=== PATIENT | female | born 1985 | race African-American/Black ===

== ENCOUNTER 2017-11-12 09:14 | Inpatient (IN) | payer MEDICAID ==
[2017-11-12] MEDS ORDERED: BUTORPHANOL 2 MG INJ IV (10:00)
[2017-11-12] MEDS ORDERED: METHYLERGONOVINE 0.2 MG INJ IM (10:00)
[2017-11-12] MEDS ORDERED: OXYTOCIN 30 UNITS/LR 500 ML IV ×3 (10:00)
[2017-11-12] MEDS ORDERED: LIDOCAINE 1% (MPF) 30 ML INJ INJ (10:00)
[2017-11-12] MEDS ORDERED: CARBOPROST 250 MCG INJ IM (10:00)
[2017-11-12] MEDS ORDERED: IBUPROFEN 600 MG TAB PO (10:00)
[2017-11-12] MEDS ORDERED: OXYCODONE/ASPIRIN (4.88/325) TAB PO (10:00)
[2017-11-12] MEDS ORDERED: MISOPROSTOL 200 MCG TAB PR (10:00)
[2017-11-12] MEDS: LACTATED RINGER'S 1,000 ML IV* ×3 (10:09→21:37)
[2017-11-12 10:49] LABS: ADD MAN DIFF? NO
[2017-11-12 10:51] LABS: BASOPHILS % 0.4 % (0.0-2.0); EOSINOPHILS # 0.1 10^3/ul (0.0-0.5); EOSINOPHILS % 1.1 % (0.0-7.0); HEMATOCRIT 33.4 % (37.0-47.0); HEMOGLOBIN 10.5 g/dl (12.0-16.0); LYMPHOCYTES % 25.5 % (15.0-51.0); MEAN CORPUSCULAR HEMOGLOBIN 25.4 pg (29.0-33.0); MEAN CORPUSCULAR HGB CONC 31.4 g/dl (32.0-37.0); MEAN CORPUSCULAR VOLUME 80.9 fl (82.0-101.0); MEAN PLATELET VOLUME 11.2 fl (7.4-10.4); MONOCYTE # 0.5 10^3/ul (0.3-0.9); MONOCYTES % 5.8 % (0.0-11.0); NEUTROPHIL # 5.3 10^3/ul (1.6-7.5); NEUTROPHILS % 66.9 % (39.0-77.0); PLATELET COUNT 220 10^3/UL (140-415); RED BLOOD COUNT 4.13 10^6/ul (4.20-5.40); RED CELL DISTRIBUTION WIDTH 15.1 % (11.5-14.5)
[2017-11-12 11:11] LABS: INR 0.85; PROTIME 11.7 Sec (11.9-14.9); PT RATIO 0.9
[2017-11-12] MEDS: MISOPROSTOL 50 MCG CAPSULE PO (15:21)
[2017-11-12 15:55] LABS: RAPID PLASMA REAGIN NONREACTIVE (NR)
[2017-11-12] MEDS ORDERED: TERBUTALINE 1 ML (16:03)
[2017-11-12] MEDS: TERBUTALINE 1 MG/ML INJ SC (16:22)
[2017-11-13] MEDS: LACTATED RINGER'S 1,000 ML IV* ×2 (05:10→20:04)
[2017-11-13] MEDS ORDERED: FENTAnyl 2MCG/ML-ROPIV 0.2% 100 ML (15:45)
[2017-11-13] MEDS ORDERED: NALOXONE (0.4 MG/ML) INJ IV (16:00)
[2017-11-13] MEDS ORDERED: DIPHENHYDRAMINE 50 MG INJ IV (16:00)
[2017-11-13] MEDS: FENTAnyl 2MCG/ML-ROPIV 0.2% 100 ML BAG EPI (20:05)
[2017-11-14] MEDS: FENTAnyl 2MCG/ML-ROPIV 0.2% 100 ML BAG EPI ×4 (00:45→23:59)
[2017-11-14] MEDS: LACTATED RINGER'S 1,000 ML IV* ×3 (04:01→19:44)
[2017-11-14 04:11] LABS: AMPHETAMINE/METHAMPHETAMINE Negative (NEGATIVE); BARBITURATES Negative (NEGATIVE); BENZODIAZEPINES Negative (NEGATIVE); CANNABINOIDS Negative (NEGATIVE); COCAINE Negative (NEGATIVE); OPIATES Negative (NEGATIVE)
[2017-11-14] MEDS: ONDANSETRON 4 MG INJ IV (09:59)
[2017-11-14] MEDS: DEXTROSE 5%-LR 1,000 ML IV ×2 (19:44)
[2017-11-15] MEDS: DEXTROSE 5%-LR 1,000 ML IV ×2 (04:20→17:09)
[2017-11-15] MEDS: LACTATED RINGER'S 1,000 ML IV* ×3 (04:21→17:09)
[2017-11-15] MEDS: OXYTOCIN 30 UNITS/LR 500 ML IV (05:53)
[2017-11-15] MEDS: FENTAnyl 2MCG/ML-ROPIV 0.2% 100 ML BAG EPI ×3 (08:24→20:54)
[2017-11-15] MEDS: AMPICILLIN 2 GM/NS (PMX) 100 ML IV (20:03)
[2017-11-16] MEDS: AMPICILLIN 1 GM/NS (PMX) 50 ML IV ×3 (00:17→07:56)
[2017-11-16] MEDS: OXYTOCIN 30 UNITS/LR 500 ML IV ×3 (00:26→17:41)
[2017-11-16] MEDS: FENTAnyl 2MCG/ML-ROPIV 0.2% 100 ML BAG EPI ×2 (02:44→08:46)
[2017-11-16] MEDS: LACTATED RINGER'S 1,000 ML IV* (05:46)
[2017-11-16] MEDS ORDERED: CEFAZOLIN 2 GM/50 ML (PMX) 50 ML IVPB (09:00)
[2017-11-16] MEDS: TERBUTALINE 1 MG/ML INJ SC (09:23)
[2017-11-16 10:16] LABS: ADD MAN DIFF? NO
[2017-11-16 10:19] LABS: WHITE BLOOD COUNT 12.9 10^3/ul (4.8-10.8)
[2017-11-16 10:19] LABS: BASOPHILS % 0.2 % (0.0-2.0); HEMATOCRIT 33.2 % (37.0-47.0); HEMOGLOBIN 10.5 g/dl (12.0-16.0); LYMPHOCYTES % 15.4 % (15.0-51.0); MEAN CORPUSCULAR HEMOGLOBIN 25.5 pg (29.0-33.0); MEAN CORPUSCULAR HGB CONC 31.6 g/dl (32.0-37.0); MEAN CORPUSCULAR VOLUME 80.6 fl (82.0-101.0); MEAN PLATELET VOLUME 9.7 fl (7.4-10.4); MONOCYTE # 0.7 10^3/ul (0.3-0.9); NEUTROPHIL # 10.1 10^3/ul (1.6-7.5); NEUTROPHILS % 78.7 % (39.0-77.0); PLATELET COUNT 207 10^3/UL (140-415); RED BLOOD COUNT 4.12 10^6/ul (4.20-5.40)
[2017-11-16 10:39] LABS: INR 0.99; PARTIAL THROMBOPLASTIN TIME 30.1 Sec (23.0-35.0); PROTIME 13.2 Sec (11.9-14.9)
[2017-11-16] MEDS ORDERED: morphine SULFATE/PF (10 MG/10 ML) INJ (12:06)
[2017-11-16] MEDS ORDERED: BUPIVACAINE 0.75%/DEXT (SPINAL) 2 ML INJ (12:07)
[2017-11-16] MEDS ORDERED: ONDANSETRON 4 MG INJ (12:32)
[2017-11-16] MEDS ORDERED: OXYTOCIN 10 UNIT INJ ×2 (12:32→13:17)
[2017-11-16] MEDS ORDERED: MIDAZOLAM 1 MG/ML 2 ML INJ ×2 (12:35→12:43)
[2017-11-16] MEDS ORDERED: NALBUPHINE HCL (10 MG/1 ML) INJ IV (14:00)
[2017-11-16] MEDS ORDERED: KETOROLAC 30 MG INJ IV (14:00)
[2017-11-16] MEDS ORDERED: MIDAZOLAM 1 MG/ML 2 ML INJ IV (14:00)
[2017-11-16] MEDS ORDERED: DIPHENHYDRAMINE 50 MG INJ IV ×2 (14:00)
[2017-11-16] MEDS ORDERED: MEPERIDINE 25 MG INJ IV (14:00)
[2017-11-16] MEDS ORDERED: KETOROLAC 60 MG INJ IM (14:00)
[2017-11-16] MEDS ORDERED: HYDROmorphONE 0.5 MG/0.5 ML SYG IV ×2 (14:00)
[2017-11-16] MEDS ORDERED: EPHEDrine SULFATE 50 MG/5 ML SYG IV (14:00)
[2017-11-16] MEDS ORDERED: ONDANSETRON 4 MG INJ IV ×2 (14:00)
[2017-11-16] MEDS ORDERED: NALOXONE (0.4 MG/ML) INJ IV (14:00)
[2017-11-16] MEDS ORDERED: ZOLPIDEM 5 MG TAB PO (14:00)
[2017-11-16] MEDS ORDERED: MISOPROSTOL 200 MCG TAB PR (14:30)
[2017-11-16] MEDS ORDERED: OXYTOCIN 30 UNITS/LR 500 ML IV (14:30)
[2017-11-16] MEDS ORDERED: OXYCODONE/ACETAMINOPHEN (5/325) TAB PO (14:30)
[2017-11-16] MEDS ORDERED: METHYLERGONOVINE 0.2 MG TAB PO (14:30)
[2017-11-16] MEDS ORDERED: METHYLERGONOVINE 0.2 MG INJ IM (14:30)
[2017-11-16] MEDS ORDERED: CARBOPROST 250 MCG INJ IM (14:30)
[2017-11-16] MEDS: DEXTROSE 5%-LR 1,000 ML IV (19:00)
[2017-11-16] MEDS: OXYCODONE/ACETAMINOPHEN (5/325) TAB PO ×2 (19:00→22:30)
[2017-11-16] MEDS: LACTATED RINGER'S 1,000 ML IV (19:00)
[2017-11-16] MEDS: SENNA/DOCUSATE NA (8.6MG/50MG) TAB PO (21:00)
[2017-11-17] MEDS: DEXTROSE 5%-LR 1,000 ML IV ×2 (00:12→07:42)
[2017-11-17] MEDS: OXYCODONE/ACETAMINOPHEN (5/325) TAB PO ×3 (07:51→22:55)
[2017-11-17 08:54] LABS: ADD MAN DIFF? NO
[2017-11-17 08:58] LABS: WHITE BLOOD COUNT 11.5 10^3/ul (4.8-10.8)
[2017-11-17 08:58] LABS: BASOPHILS % 0.1 % (0.0-2.0); EOSINOPHILS % 0.3 % (0.0-7.0); HEMATOCRIT 29.8 % (37.0-47.0); HEMOGLOBIN 9.4 g/dl (12.0-16.0); LYMPHOCYTES # 1.3 10^3/ul (0.8-2.9); LYMPHOCYTES % 11.4 % (15.0-51.0); MEAN CORPUSCULAR HEMOGLOBIN 25.5 pg (29.0-33.0); MEAN CORPUSCULAR HGB CONC 31.5 g/dl (32.0-37.0); MEAN PLATELET VOLUME 10.1 fl (7.4-10.4); MONOCYTE # 0.8 10^3/ul (0.3-0.9); MONOCYTES % 6.6 % (0.0-11.0); NEUTROPHIL # 9.4 10^3/ul (1.6-7.5); NEUTROPHILS % 81.2 % (39.0-77.0); PLATELET COUNT 206 10^3/UL (140-415); RED BLOOD COUNT 3.68 10^6/ul (4.20-5.40); RED CELL DISTRIBUTION WIDTH 15.2 % (11.5-14.5)
[2017-11-17] MEDS: SENNA/DOCUSATE NA (8.6MG/50MG) TAB PO ×2 (12:30→21:41)
[2017-11-17] MEDS: LANOLIN 7 GM TUBE TOP (12:30)
[2017-11-17] MEDS: HYDROCODONE/APAP (5/325) TAB PO ×3 (15:59→21:41)
[2017-11-17] MEDS: IBUPROFEN 800 MG TAB PO (22:55)
[2017-11-18] MEDS: IBUPROFEN 800 MG TAB PO ×3 (06:06→22:03)
[2017-11-18] MEDS: OXYCODONE/ACETAMINOPHEN (5/325) TAB PO ×3 (06:06→23:30)
[2017-11-18] MEDS: HYDROCODONE/APAP (5/325) TAB PO ×3 (07:02→22:03)
[2017-11-18] MEDS: SENNA/DOCUSATE NA (8.6MG/50MG) TAB PO ×2 (11:07→22:02)
[2017-11-19] MEDS: OXYCODONE/ACETAMINOPHEN (5/325) TAB PO ×3 (06:10→23:01)
[2017-11-19] MEDS: IBUPROFEN 800 MG TAB PO ×3 (06:10→22:09)
[2017-11-19] MEDS: HYDROCODONE/APAP (5/325) TAB PO ×3 (06:11→22:10)
[2017-11-19] MEDS: SENNA/DOCUSATE NA (8.6MG/50MG) TAB PO ×2 (09:09→22:09)
[2017-11-19] MEDS: MEASLES,MUMPS,RUBELLA VACCINE INJ SC* (09:52)
[2017-11-19] MEDS: DIPHTH/TET/ACEL PERTUSS (ADULT) 0.5 ML VIAL IM* (09:52)
[2017-11-20] MEDS: IBUPROFEN 800 MG TAB PO (05:44)
[2017-11-20] MEDS: HYDROCODONE/APAP (5/325) TAB PO ×2 (05:45→12:52)
[2017-11-20] MEDS: OXYCODONE/ACETAMINOPHEN (5/325) TAB PO (06:29)
[2017-11-20] MEDS: SENNA/DOCUSATE NA (8.6MG/50MG) TAB PO (11:05)
[2017-11-20] MEDS: DIPHTH/TET/ACEL PERTUSS (ADULT) 0.5 ML VIAL IM* (13:47)
== END 2017-11-20 14:20 | disposition home or self-care (01) | DRG 788 ==
LOC: L-D 09:14 → PP1 15:16 → L-D 11-16 15:13 → PP1 11-16 15:38
PROVIDERS: Obstetrics & Gynecology
PROC: 10D00Z1 Extraction of Products of Conception, Low, Open Approach (ICD-10-PCS; principal; 2017-11-16 12:30)
DX: O48.0 Post-term pregnancy (principal); O32.4XX0 Maternal care for high head at term, not applicable or unspecified; O76 Abnormality in fetal heart rate and rhythm complicating labor and delivery; Z37.0 Single live birth; Z3A.41 41 weeks gestation of pregnancy; Z23 Encounter for immunization
CPT/HCPCS: 62319; 76815; 80307; 85025; 85610; 85730; 86592; 86850; 86900; 86901; 90715; 99464